=== PATIENT | female | born 1960 ===

== ENCOUNTER 2022-06-02 07:45 | Day surgery (SDC) | payer OTHER ==
[~2022-06-02 07:45] MED LIST: CRESTOR5 MG PO; DORZOLAMIDE HCL10 ML OP; INDAPAMIDE2.5 MG PO; PEPCID40 MG PO; TOPROL XL25 M1 PO
== END 2022-06-02 17:05 | disposition home or self-care (01) ==
LOC: CIR.AMB 07:45
PROVIDERS: ATTEND Obstetrics & Gynecology
DX: N90.4 Leukoplakia of vulva (principal); Z20.822 Contact with and (suspected) exposure to COVID-19; Z88.8 Allergy status to other drugs, medicaments and biological substances; Z86.16 Personal history of COVID-19; Z87.891 Personal history of nicotine dependence; G43.909 Migraine, unspecified, not intractable, without status migrainosus; K21.9 Gastro-esophageal reflux disease without esophagitis